=== PATIENT | male | born 1970 | race Caucasian/White ===

== ENCOUNTER 2021-01-03 14:23 | Emergency (ER) | payer MEDICAID, OTHER ==
[~2021-01-03] VITALS: Ht 165.1 cm; Wt 52.0 kg
[2021-01-03 14:34] VITALS: BP 100/68
== END 2021-01-03 15:05 | disposition home or self-care (01) ==
LOC: ER 14:24
DX: Z20.822 Contact with and (suspected) exposure to COVID-19 (principal); Z88.0 Allergy status to penicillin
CPT/HCPCS: 87635; 99283; C9803